=== PATIENT | female | born 1985 | race Caucasian/White ===

== ENCOUNTER 2019-10-22 17:52 | Emergency (ER) | payer MEDICAID ==
--- NOTE | 2019-10-22 18:15 | EDM.PDOC ---
ED HPI GENERAL MEDICAL PROBLEM - General Chief Complaint: Lower Extremity Injury/Pain Stated Complaint: R) 2nd toe injury Time Seen by Provider: 10/22/19 18:00 Source of Information: Reports: Patient, Family (), Old Records ([facility] EMR. No paper hospital chart available.) - History of Present Illness INITIAL COMMENTS - FREE TEXT/NARRATIVE: The patient was brought to the emergency room via private automobile by her for evaluation of 3/10 throbbing toe pain of digit #2 of the right foot after she caught it on a friend's door while taking care of his dog at about 17 :30 hours this afternoon. She denies any treatment or medications prior to arrival and has not injured this digit in the past. No history of fall, head injury, neurological deficits, foreign body or other complaints or injuries. No recent history of abdominal pain, heartburn, nausea, diarrhea, melena, gross hematochezia, or any food intolerance, including fatty foods, etc.. The patient also denies any recent fever, cough, wheezing, dyspnea, etc.. Onset: Today, Sudden Onset Date: 10/22/19 Onset Time: 17:30 Duration: Constant Location: Reports: Lower Extremity, Right. Denies: Head, Face, Neck, Chest, Abdomen, Back, Pelvis, Upper Extremity, Left, Upper Extremity, Right, Lower Extremity, Left, Radiates to Quality: Reports: Same as Previous Episode, Throbbing Severity: Mild Improves with: Reports: None Worsens with: Reports: None Context: Reports: Trauma Associated Symptoms: Reports: No Other Symptoms. 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: Reports: Other (see below) (None) Right Foot Pain Score (Numeric/FACES): 3 - Related Data Allergies Allergy/AdvReac Type Severity Reaction Status Date / Time adhesive tape Allergy Other Verified 10/22/19 17:53 codeine Allergy Itching Verified 10/22/19 17:53 Home Meds: Home Meds FLUoxetine HCl [Fluoxetine HCl] 40 mg PO DAILY 04/04/18 [History] FLUoxetine HCl [Prozac] 20 mg PO DAILY 04/04/18 [History] gemfibroziL [Lopid] 1 tab PO BID 12/12/18 [History] ALPRAZolam [Alprazolam] 1 tab PO Q6H PRN 10/22/19 [History] lisinopriL [Lisinopril] 10 mg PO DAILY 10/22/19 [History] Past Medical History HEENT History: Reports: Allergic Rhinitis, Impaired Vision, Other (See Below). Denies: Epistaxis, Glaucoma, Hard of Hearing, Macular Degeneration, Otitis Media, Retinal Detachment Other HEENT History: Patient wears glasses. Cardiovascular History: Reports: High Cholesterol, Hypertension, Other (See Below). Denies: Afib, Arrhythmia, Blood Clots/VTE/DVT, CAD, Cardiomyopathy, Heart Murmur, SD Other Cardiovascular History: Dyslipidemia. Respiratory History: Reports: None, Intubation, Previous. Denies: Asthma, Intubation, Difficult Gastrointestinal History: Reports: Cholelithiasis Genitourinary History: Reports: None. Denies: Acute Renal Failure, Chronic Renal Insuffiency, Renal Calculus, Retention, Urinary, Urinary Incontinence, UTI, Recurrent STENOTYPE MACHINE OPERATOR History: Reports: , Spontaneous . Denies: Dysfunctional Uterine Bleeding, Endometriosis, Fibroids : 4 Para: 2 LMP (Approximate): Other (See Below) Other STENOTYPE MACHINE OPERATOR History: LMP on 10/06/21 was normal. First trimester SAB and elective . Full term without complications during pregnancies or deliveries. Musculoskeletal History: Reports: Arthritis, Back Pain, Chronic, Fracture, Neck Pain, Chronic, Osteoarthritis, Other (See Below) Other Musculoskeletal History: Right mid radial ulnar fracture with concomitant right biceps tendon rupture at age 16 with no surgeries acquired. Neurological History: Reports: Headaches, Chronic, Migraines Psychiatric History: Reports: Anxiety, Depression Endocrine/Metabolic History: Reports: Obesity/BMI 30+ - Past Surgical History HEENT Surgical History: Reports: Oral Surgery, Other (See Below). Denies: Adenoidectomy, Myringotomy w Tube(s), Tonsillectomy Other HEENT Surgeries/Procedures: [place] teeth extraction 4 at age 19. GI Surgical History: Reports: Cholecystectomy, Other (See Below). Denies: Appendectomy, Hernia, Abdominal, Hernia, Inguinal, Hernia Repair/Other Other GI Surgeries/Procedures: Laparoscopic cholecystectomy in 2004. Female Surgical History: Reports: D&C, Dilitation & Evacuation, Other (See Below). Denies: Tubal Ligation Other Female Surgeries/Procedures: Elective as above. Endocrine Surgical History: Reports: None Neurological Surgical History: Reports: None Musculoskeletal Surgical History: Reports: None. Denies: ORIF - Past Imaging History Past Imaging History: Reports: Ultrasound (Last abdominal ultrasound on 06/12/18.) Social & Family History - Family History Neurological: Reports: Alzheimers Disease, Dementia, Other (See Below) Other Neurological Family History: Maternal grandmother with organic brain syndrome. - Tobacco Use Smoking Status *Q: Former Smoker Tobacco Use Within Last Twelve Months: No Years of Tobacco use: 13 Packs/Tins Daily: 1.5 Packs/Tins Daily Comment: Smoked between ages 13 and 31 with maximum use of 1.5 packs per day. 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 ED EXAM, GENERAL - Physical Exam Exam: See Below Exam Limited By: No Limitations General Appearance: Alert, WD/WN, No Apparent Distress, Anxious (Mild) Head: Atraumatic, Normocephalic. No: Facial Swelling, Facial Tenderness, Sinus Tenderness Neck: Normal Inspection, Supple, Non-Tender, Full Range of Motion. No: Lymphadenopathy (L), Lymphadenopathy (R), Thyromegaly Respiratory/Chest: No Respiratory Distress, Lungs Clear, Normal Breath Sounds, No Accessory Muscle Use, Chest Non-Tender. No: Pleural Rub, Retractions Cardiovascular: Normal Peripheral Pulses, Regular Rate, Rhythm, No Edema, No Gallop, No JVD, No Murmur, No Rub. No: Gallop/S3, Gallop/S4, Friction Rub Peripheral Pulses: 2+: Radial (L), Radial (R), Dorsalis Pedis (L), Dorsalis Pedis (R) GI/Abdominal: Normal Bowel Sounds, Soft, Non-Tender, No Organomegaly, No Distention, No Abnormal Bruit, No Mass, Pelvis Stable, Other (Obese). No: Guarding (Female) Exam: Deferred Rectal (Female) Exam: Deferred Back Exam: Normal Inspection, Full Range of Motion. No: CVA Tenderness (L), CVA Tenderness (R), Muscle Spasm Extremities: Normal Range of Motion, Normal Capillary Refill, Other (Mild spotting/bleeding with minimal nail avulsion and no evidence of acute laceration of digit #2 of the right foot. No foreign body, deformity, crepitation, or sign of fracture.). No: Joint Swelling, Chivo's Sign Neurological: Alert, Oriented, CN II-XII Intact, Normal Cognition, Normal Gait, No Motor/Sensory Deficits Psychiatric: Anxious (Mild). No: Depressed Mood Skin Exam: Warm, Dry, Intact, Normal Color, No Rash, Tattoo(s) (Multiple), Wound/Incision (Nail avulsion as above). No: Diaphoretic, Ecchymosis, Petechiae Lymphatic: No Adenopathy Course - Vital Signs Last Recorded V/S: Last Vital Signs Temp 37.2 C 10/22/19 17:55 Pulse 100 10/22/19 17:55 Resp 18 10/22/19 17:55 BP 144/87 H 10/22/19 18:40 Pulse Ox 96 10/22/19 17:55 Vital Signs - 24 hr 10/22/19 10/22/19 17:55 18:40 Temperature [ 37.2 C Oral] Pulse, 100 Peripheral [ Pulse Oximetry] Respiratory 18 Rate Blood Pressure 153/96 H 144/87 H [Right Lower Arm] O2 Sat by Pulse 96 Oximetry - Orders/Labs/Meds Orders: Active Orders 24 hr Category Date Time Status Toes Second Digit Rt T6 [CR] Stat Exams 10/22/19 18:16 Ordered Labs: None Meds: Medications Discontinued Medications Generic Name Dose Route Start Last Admin Trade Name Freq PRN Reason Stop Dose Admin Neomycin/Polymyxin/Bacitracin 1 each 10/22/19 18:16 Triple Antibiotic Oint TOP 10/22/19 18:17 ONETIME ONE - Radiology Interpretation Free Text/Narrative:: X-rays of digit #2 of the right foot shows mild to moderate osteoarthritic changes with no fracture, dislocation, foreign body, etc. Departure - Departure Time of Disposition: 18:45 Disposition: Home, Self-Care 01 Clinical Impression: Nail avulsion of toe, Hypertension, Dyslipidemia, Osteoarthritis, Mixed anxiety depressive disorder, Tobacco abuse counseling - Discharge Information *PRESCRIPTION DRUG MONITORING PROGRAM REVIEWED*: Not Applicable *COPY OF PRESCRIPTION DRUG MONITORING REPORT IN PATIENT PERCY: Not Applicable Instructions: Steps to Quit Smoking, [id number], Nail Avulsion, Health Risks of Smoking, Preventing Exposure to Secondhand Smoke, Adult Referrals: Sophia Marvin NP [Primary Care Provider] - Forms: ED Department Discharge Additional Instructions: 1. Follow up with your regular provider in 10-14 days as needed, if symptoms persist. Bring these discharge instructions with you to that visit.. 2. Tylenol 650 mg by mouth every 4 hours and/or OTC ibuprofen 2-3 tabs by mouth every 6 hours with food as directed./needed. You may stagger these medications for 48-72 hours only, which essentially means that you are receiving a pain medication about every 2 hours. 3. Antibacterial soap wash/soak with subsequent antibacterial dressing such as Neosporin, etc. as directed 2 times per day until the wound site completely heals. Keep the area clean and dry with activity restrictions as discussed. Never use hydrogen peroxide for wound care. 4. Stop all tobacco exposure NAISMA as directed with counselling, information, etc. given at discharge. 5. Activity as tolerated/discussed 6. Immediately after this visit verify that your cellular telephone's voicemail has been activated and is empty. Also verify that your home telephone's answering machine is operating properly and has space to receive messages. Note that it is sometimes necessary for us to be able to contact you at a later date to discuss your medical care. 7. Please remember that we are ALWAYS here for you and want to answer any questions you may have. Feel free to call the hospital any time and we call you back NASIM[place]. 8. Continue to observe your blood pressure closely through your regular provider. Sepsis Event Note (ED) - Evaluation Sepsis Screening Result: No Definite Risk - Focused Exam Vital Signs: Vital Signs Temp Pulse Resp BP Pulse Ox 10/22/19 18:40 144/87 H 10/22/19 17:55 37.2 C 100 18 153/96 H 96 - Problem List & Annotations (1) Nail avulsion of toe SNOMED Code(s): 451533377 Code(s): S91.209A - UNSP OPEN WOUND OF UNSP TOE(S) W DAMAGE TO NAIL, INIT ENCNTR Status: Acute Priority: High Onset Date: 10/22/19 Annotation/Comment:: Minor nail avulsion with no evidence of laceration, significant bleeding, etc. No indication for nail removal at this time. Symptomatic relief as per discharge instructions. Last TdAP on 02/25/17, which was confirmed by the emergency room nurse through [facility]. Qualifiers: Encounter type: initial encounter Qualified Code(s): S91.209A - Unspecified open wound of unspecified toe(s) with damage to nail, initial encounter (2) Hypertension SNOMED Code(s): 74860939 Code(s): I10 - ESSENTIAL (PRIMARY) HYPERTENSION Status: Chronic Priority: Medium Annotation/Comment:: Somewhat elevated in the emergency room, however improved without further therapy. Continue to observe closely by her regular provider with no medication changes at this time. Qualifiers: Hypertension type: essential hypertension Qualified Code(s): I10 - Essential (primary) hypertension (3) Tobacco abuse counseling SNOMED Code(s): 303654841, 519034031, 125209951 Code(s): Z71.6 - TOBACCO ABUSE COUNSELING Status: Chronic Priority: Medium Annotation/Comment:: She was congratulated about quitting smoking with her apparently also trying to quit smoking. Tobacco cessation, etc. strongly encouraged with information provided. (4) Dyslipidemia SNOMED Code(s): 853387269 Code(s): E78.5 - HYPERLIPIDEMIA, UNSPECIFIED Status: Chronic Priority: Medium Annotation/Comment:: Currently under therapy. Weight loss in moderation advisable secondary to her obesity. (5) Mixed anxiety depressive disorder SNOMED Code(s): 490089188 Code(s): F41.8 - OTHER SPECIFIED ANXIETY DISORDERS Status: Chronic Priority: Medium Annotation/Comment:: Stable by history (6) Osteoarthritis SNOMED Code(s): 708807902 Code(s): M19.90 - UNSPECIFIED OSTEOARTHRITIS, UNSPECIFIED SITE Status: Chronic Priority: Medium Annotation/Comment:: Stable by history with no evidence of other injury. Qualifiers: Osteoarthritis location: multiple joints Osteoarthritis type: primary Qualified Code(s): M89.49 - Other hypertrophic osteoarthropathy, multiple sites - Problem List Review Problem List Initiated/Reviewed/Updated: Yes - My Orders Last 24 Hours: My Active Orders 10/22/19 18:16 Toes Second Digit Rt T6 [CR] Stat - Assessment/Plan Last 24 Hours: My Active Orders 10/22/19 18:16 Toes Second Digit Rt T6 [CR] Stat Assessment:: As above Plan: As above. Extensive precautions were given to the patient and her , who are in agreement with the treatment plan. See Patient Instructions for further treatment and plan.
[2019-10-22] MEDS ORDERED: Bacitracin/Neomycin/Polymyxin B Oint 0.9 GM U/D Packet TOP ONE (18:16)
== END 2019-10-22 18:45 | disposition home or self-care (01) ==
LOC: LL.ED 17:52
DX: S91.204A Unspecified open wound of right lesser toe(s) with damage to nail, initial encounter (principal); I10 Essential (primary) hypertension; E78.5 Hyperlipidemia, unspecified; M19.90 Unspecified osteoarthritis, unspecified site; F41.8 Other specified anxiety disorders; Z87.891 Personal history of nicotine dependence; E66.9 Obesity, unspecified; Z68.43 Body mass index [BMI] 50.0-59.9, adult; Z71.6 Tobacco abuse counseling; Z88.5 Allergy status to narcotic agent; Z91.048 Other nonmedicinal substance allergy status; Z79.899 Other long term (current) drug therapy; W23.0XXA Caught, crushed, jammed, or pinched between moving objects, initial encounter
CPT/HCPCS: 73660-T6; 99283

== ENCOUNTER 2019-11-24 17:50 | Emergency (ER) | payer MEDICAID ==
[2019-11-24] MEDS: Sodium Chloride 0.9% 10 ML Syringe FLUSH PRN (18:22)
[2019-11-24] MEDS: Ketorolac 30 MG/ML SDV IVPUSH ONE ×2 (18:22→19:27)
--- NOTE | 2019-11-24 18:41 | EDM.PDOC ---
ED HPI GENERAL MEDICAL PROBLEM - General Chief Complaint: Flank Pain Stated Complaint: left flank pain Time Seen by Provider: 11/24/19 18:27 Source of Information: Reports: Patient History Limitations: Reports: No Limitations - History of Present Illness INITIAL COMMENTS - FREE TEXT/NARRATIVE: 1 1/2 week hx intermittent left flank pain. Has become more constant over the last few days. Now is located a bit lower and wrapping around left side of abdomen. No nausea/emesis/fever. Urinated more frequently last night but denies pain with urination. No other acute changes/complaints. Left Flank Pain Score (Numeric/FACES): 6 - Related Data Allergies Allergy/AdvReac Type Severity Reaction Status Date / Time adhesive tape Allergy Other Verified 11/24/19 17:58 codeine Allergy Itching Verified 11/24/19 17:58 Home Meds: Home Meds ALPRAZolam [Alprazolam] 1 tab PO Q6H PRN 10/22/19 [History] lisinopriL [Lisinopril] 10 mg PO DAILY 10/22/19 [History] Cyclobenzaprine [Flexeril] 10 mg PO TID PRN 11/24/19 [History] Escitalopram [Lexapro] 20 mg PO DAILY 11/24/19 [History] Fenofibrate Nanocrystallized [Fenofibrate] 145 mg PO DAILY 11/24/19 [History] Phentermine HCl 15 mg PO DAILY 11/24/19 [History] Pravastatin Sodium 10 mg PO DAILY 11/24/19 [History] Tamsulosin HCl [Flomax] 0.4 mg PO DAILY #10 capsule 11/24/19 [Rx] Past Medical History HEENT History: Reports: Allergic Rhinitis, Impaired Vision, Other (See Below). Denies: Epistaxis, Glaucoma, Hard of Hearing, Macular Degeneration, Otitis Media, Retinal Detachment Other HEENT History: Patient wears glasses. Cardiovascular History: Reports: High Cholesterol, Hypertension, Other (See Below). Denies: Afib, Arrhythmia, Blood Clots/VTE/DVT, CAD, Cardiomyopathy, Heart Murmur, [place] Other Cardiovascular History: Dyslipidemia. Respiratory History: Reports: None, Intubation, Previous. Denies: Asthma, Intubation, Difficult Gastrointestinal History: Reports: Cholelithiasis Genitourinary History: Reports: None. Denies: Acute Renal Failure, Chronic Renal Insuffiency, Renal Calculus, Retention, Urinary, Urinary Incontinence, UTI, Recurrent CONTINUOUS MINER History: Reports: , Spontaneous . Denies: Dysfunctional Uterine Bleeding, Endometriosis, Fibroids Other CONTINUOUS MINER History: LMP on 10/06/21 was normal. First trimester SAB and elective . Full term without complications during pregnancies or deliveries. Musculoskeletal History: Reports: Arthritis, Back Pain, Chronic, Fracture, Neck Pain, Chronic, Osteoarthritis, Other (See Below) Other Musculoskeletal History: Right mid radial ulnar fracture with concomitant right biceps tendon rupture at age 16 with no surgeries acquired. Neurological History: Reports: Headaches, Chronic, Migraines Psychiatric History: Reports: Anxiety, Depression Endocrine/Metabolic History: Reports: Obesity/BMI 30+ - Past Surgical History HEENT Surgical History: Reports: Oral Surgery, Other (See Below). Denies: Adenoidectomy, Myringotomy w Tube(s), Tonsillectomy Other HEENT Surgeries/Procedures: [place] teeth extraction 4 at age 19. GI Surgical History: Reports: Cholecystectomy, Other (See Below). Denies: Appendectomy, Hernia, Abdominal, Hernia, Inguinal, Hernia Repair/Other Other GI Surgeries/Procedures: Laparoscopic cholecystectomy in 2004. Female Surgical History: Reports: D&C, Dilitation & Evacuation, Other (See Below). Denies: Tubal Ligation Other Female Surgeries/Procedures: Elective as above. Endocrine Surgical History: Reports: None Neurological Surgical History: Reports: None Musculoskeletal Surgical History: Reports: None. Denies: ORIF - Past Imaging History Past Imaging History: Reports: Ultrasound (Last abdominal ultrasound on 06/12/18.) Social & Family History - Family History Neurological: Reports: Alzheimers Disease, Dementia, Other (See Below) Other Neurological Family History: Maternal grandmother with organic brain syndrome. 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 ED EXAM, GENERAL - Physical Exam Exam: See Below Exam Limited By: No Limitations General Appearance: Alert, Moderate Distress, Obese Eye Exam: Bilateral Eye: EOMI, PERRL Ears: Hearing Grossly Normal Nose: No: Nasal Deformity, Nasal Swelling, Nasal Drainage Throat/Mouth: Normal Lips, Normal Voice, No Airway Compromise Head: Atraumatic, Normocephalic Neck: Supple Respiratory/Chest: No Respiratory Distress, Lungs Clear, Normal Breath Sounds, No Accessory Muscle Use Cardiovascular: Regular Rate, Rhythm, No Murmur GI/Abdominal: Soft, Non-Tender, No Distention (Female) Exam: Deferred Rectal (Female) Exam: Deferred Back Exam: CVA Tenderness (L). No: CVA Tenderness (R), Muscle Spasm Extremities: Normal Inspection, Normal Capillary Refill Neurological: Alert, Oriented, Normal Cognition, Normal Gait Psychiatric: Normal Affect, Normal Mood Skin Exam: Warm, Dry, Intact, Normal Color Course - Vital Signs Last Recorded V/S: Last Vital Signs Temp 36.4 C 11/24/19 17:51 Pulse 88 11/24/19 17:51 Resp 20 11/24/19 17:51 BP 149/70 H 11/24/19 17:51 Pulse Ox 99 11/24/19 17:51 - Orders/Labs/Meds Orders: Active Orders 24 hr Category Date Time Status Peripheral IV Care [RC] . DIRECTED Care 11/24/19 18:14 Active Abdomen Pelvis wo Cont [CT] Stat Exams 11/24/19 18:36 Taken CULTURE URINE [RM] Routine Lab 11/24/19 20:23 Ordered Sodium Chloride 0.9% [Saline Flush] Med 11/24/19 18:14 Active 10 ml FLUSH ASDIRECTED PRN Peripheral IV Insertion Adult [OM.PC] Routine Oth 11/24/19 18:14 Ordered Medication Orders Sodium Chloride (Saline Flush) 10 ml FLUSH ASDIRECTED PRN PRN Reason: Keep Vein Open Last Admin: 11/24/19 18:22 Dose: 10 ml Documented by: JACQUI Labs: Laboratory Tests 11/24/19 11/24/19 11/24/19 Range/Units 18:10 18:25 18:47 WBC 9.9 (4.0-10.2) K/uL RBC 4.95 (3.77-5.09) M/uL Hgb 11.8 (11.7-15.5) g/dL Hct 39.1 (34.0-46.0) % MCV 79.0 L (84.0-98.0) fL MCH 23.8 L (28.2-33.3) pg MCHC 30.2 L (31.7-36.0) g/dL RDW 16.4 H (11.2-14.1) % Plt Count 448 H (150-350) K/uL Neut % (Auto) 55.9 (45.0-80.0) % Lymph % (Auto) 31.7 (10.0-50.0) % [place] % (Auto) 8.5 (2.0-14.0) % Eos % (Auto) 3.5 (0.0-5.0) % Baso % (Auto) 0.4 (0.0-2.0) % Neut # (Auto) 5.50 (1.40-7.00) K/uL Lymph # (Auto) 3.13 (0.50-3.50) K/uL [place] # (Auto) 0.84 (0.00-1.00) K/uL Eos # (Auto) 0.35 (0.00-0.50) K/uL Baso # (Auto) 0.04 (0.00-0.20) K/uL Sodium 138 (136-145) mmol/L Potassium 4.1 (3.5-5.1) mmol/L Chloride 102 (98-107) mmol/L Carbon Dioxide 27.6 (21.0-32.0) mmol/L BUN 12 (7-18) mg/dL Creatinine 0.70 (0.51-1.17) mg/dL Est Cr Clr Drug Dosing 118.35 mL/min Estimated GFR (MDRD) > 60 mL/min Glucose 77 (74-106) mg/dL Calcium 9.0 (8.5-10.1) mg/dL Total Bilirubin 0.2 (0.2-1.0) mg/dL AST 18 (15-37) U/L ALT 32 (12-78) U/L Alkaline Phosphatase 69 (46-116) IU/L Total Protein 7.6 (6.4-8.2) g/dL Albumin 3.8 (3.4-5.0) g/dL Specimen Type Urinvoid Urine Color Yellow Urine Appearance Slightly cloudy Urine pH 6.0 (5.0-9.0) Ur Specific [place] 1.020 (1.005-1.030) Urine Protein Negative (NEGATIVE) mg/dL Urine Glucose (UA) Negative (NEGATIVE) mg/dL Urine Ketones Negative (NEGATIVE) mg/dL Urine Occult Blood Large H (NEGATIVE) Urine Nitrite Negative (NEGATIVE) Urine Bilirubin Negative (NEGATIVE) Urine Urobilinogen 1.0 (0.2-1.0) E.U./dL Ur Leukocyte Esterase Negative (NEGATIVE) Urine RBC 75-100 H /HPF Urine WBC 0-5 /HPF Ur Epithelial Cells Few /LPF Urine Bacteria Moderate H (NONE TO FEW) /HPF Urinalysis Comment Urine HCG, Qual 11/24/19 Range/Units 18:47 WBC (4.0-10.2) K/uL RBC (3.77-5.09) M/uL Hgb (11.7-15.5) g/dL Hct (34.0-46.0) % MCV (84.0-98.0) fL MCH (28.2-33.3) pg MCHC (31.7-36.0) g/dL RDW (11.2-14.1) % Plt Count (150-350) K/uL Neut % (Auto) (45.0-80.0) % Lymph % (Auto) (10.0-50.0) % [place] % (Auto) (2.0-14.0) % Eos % (Auto) (0.0-5.0) % Baso % (Auto) (0.0-2.0) % Neut # (Auto) (1.40-7.00) K/uL Lymph # (Auto) (0.50-3.50) K/uL [place] # (Auto) (0.00-1.00) K/uL Eos # (Auto) (0.00-0.50) K/uL Baso # (Auto) (0.00-0.20) K/uL Sodium (136-145) mmol/L Potassium (3.5-5.1) mmol/L Chloride (98-107) mmol/L Carbon Dioxide (21.0-32.0) mmol/L BUN (7-18) mg/dL Creatinine (0.51-1.17) mg/dL Est Cr Clr Drug Dosing mL/min Estimated GFR (MDRD) mL/min Glucose (74-106) mg/dL Calcium (8.5-10.1) mg/dL Total Bilirubin (0.2-1.0) mg/dL AST (15-37) U/L ALT (12-78) U/L Alkaline Phosphatase (46-116) IU/L Total Protein (6.4-8.2) g/dL Albumin (3.4-5.0) g/dL Specimen Type Urine Color Urine Appearance Urine pH (5.0-9.0) Ur Specific [place] (1.005-1.030) Urine Protein (NEGATIVE) mg/dL Urine Glucose (UA) (NEGATIVE) mg/dL Urine Ketones (NEGATIVE) mg/dL Urine Occult Blood (NEGATIVE) Urine Nitrite (NEGATIVE) Urine Bilirubin (NEGATIVE) Urine Urobilinogen (0.2-1.0) E.U./dL Ur Leukocyte Esterase (NEGATIVE) Urine RBC /HPF Urine WBC /HPF Ur Epithelial Cells /LPF Urine Bacteria (NONE TO FEW) /HPF Urinalysis Comment Urine HCG, Qual Negative Meds: Medications Generic Name Dose Route Start Last Admin Trade Name Freq PRN Reason Stop Dose Admin Sodium Chloride 10 ml 11/24/19 18:14 11/24/19 18:22 Saline Flush FLUSH 10 ml ASDIRECTED PRN Administration Keep Vein Open Discontinued Medications Generic Name Dose Route Start Last Admin Trade Name Freq PRN Reason Stop Dose Admin Sodium Chloride 1,000 mls @ 999 mls/hr 11/24/19 18:37 11/24/19 18:50 Normal Saline IV 11/24/19 19:37 999 mls/hr .BOLUS ONE Administration Ketorolac Tromethamine 30 mg 11/24/19 18:18 11/24/19 18:22 Toradol IVPUSH 11/24/19 18:19 30 mg ONETIME ONE Administration Ketorolac Tromethamine Confirm 11/24/19 19:20 11/24/19 19:26 Toradol Administered 11/24/19 19:21 Not Given Dose 30 mg .ROUTE .STK-MED ONE Ketorolac Tromethamine 30 mg 11/24/19 19:26 11/24/19 19:27 Toradol IVPUSH 11/24/19 19:27 30 mg ONETIME ONE Administration Morphine Sulfate 4 mg 08/02/20 19:26 11/24/19 19:28 Morphine IVPUSH 11/24/19 19:27 4 mg ONETIME ONE Administration Morphine Sulfate 2 mg 11/24/19 20:23 Morphine IVPUSH 11/24/19 20:24 ONETIME ONE Tamsulosin HCl 0.4 mg 11/24/19 18:37 11/24/19 18:50 Flomax PO 11/24/19 18:38 0.4 mg ONETIME ONE Administration - Re-Assessments/Exams Free Text/Narrative Re-Assessment/Exam: 11/24/19 18:40 Basic labs obtained. Patient denied chance of . Kidney stone suspected. Patient OK with obtaining noncontrast CT to assess for stone. Flomax/Toradol/IV fluids ordered. 11/24/19 20:11 No obvious stone or other acute process noted by Radiology upon review of CT scan. Radiologist did not feel that a second scan with contrast would give better yield. Small incidental possible ileus but it is not suspected that patient's current pain complaints are secondary to ileus. Patient's pain complaint and hematuria consistent with kidney stone. WBC normal. Differential discussed with patient. Although this appears to behave like a kidney stone, we cannot rule out radicular pain/GI cause/other abdominal etiology for pain. Patient advised that admission to Observation overnight would be best option for continued pain control. She declined this based on concern that her grandmother, who has dementia, would find patient's absence upsetting. She was made aware that we only had Tramadol and T#3 available for take home pain medication, and she is not tolerant of Codeine. Patient is willing to take risk of pain returning and will be discharged home. Departure - Departure Time of Disposition: 20:13 Disposition: Home, Self-Care 01 Condition: Good Clinical Impression: Ureteric colic - Discharge Information *PRESCRIPTION DRUG MONITORING PROGRAM REVIEWED*: Not Applicable *COPY OF PRESCRIPTION DRUG MONITORING REPORT IN PATIENT PERCY: Not Applicable Prescriptions: Tamsulosin HCl [Flomax] 0.4 mg PO DAILY #10 capsule Instructions: Kidney Stones, [id number] Referrals: PCP,None [Primary Care Provider] - Forms: ED Department Discharge Additional Instructions: as discussed, we THINK that this is pain that is most likely from a kidney stone. However, we need to keep an open mind that something else might be causing the pain and further testing may be needed. See how you feel over the next 24 hours. Follow up tomorrow at clinic for recheck, further pain meds as needed, and additional planning if you have not passed a stone and had improvement of symptoms. Follow up otherwise as needed if you have sudden worsening problems. OK to take Tylenol with your Tramadol, or Ibuprofen. Take Tramadol 1 tab every 4-6 hours prn pain Take Flomax one tab every day as needed for kidney stone like pain Strain urine to see if a stone gets passed Sepsis Event Note (ED) - Evaluation Sepsis Screening Result: No Definite Risk - Focused Exam Vital Signs: Vital Signs Temp Pulse Resp BP Pulse Ox 11/24/19 17:51 36.4 C 88 20 149/70 H 99 - My Orders Last 24 Hours: My Active Orders 11/24/19 18:14 Peripheral IV Care [RC] . DIRECTED Sodium Chloride 0.9% [Saline Flush] 10 ml FLUSH ASDIRECTED PRN Peripheral IV Insertion Adult [OM.PC] Routine 11/24/19 18:36 Abdomen Pelvis wo Cont [CT] Stat 11/24/19 20:23 CULTURE URINE [RM] Routine - Assessment/Plan Last 24 Hours: My Active Orders 11/24/19 18:14 Peripheral IV Care [RC] . DIRECTED Sodium Chloride 0.9% [Saline Flush] 10 ml FLUSH ASDIRECTED PRN Peripheral IV Insertion Adult [OM.PC] Routine 11/24/19 18:36 Abdomen Pelvis wo Cont [CT] Stat 11/24/19 20:23 CULTURE URINE [RM] Routine
[2019-11-24] MEDS: Tamsulosin 0.4 MG Cap.ER PO ONE (18:50)
[2019-11-24] MEDS: Sodium Chloride 0.9% 1,000 ML IV ONE (18:50)
[2019-11-24 18:52] LABS: CHLORIDE,CL 102 mmol/L (98-107); SODIUM,NA 138 mmol/L (136-145)
[2019-11-24] MEDS: Ketorolac 30 MG/ML SDV ONE (19:26)
[2019-11-24] MEDS: Morphine 4 MG/ML Syringe IVPUSH ONE (19:28)
[2019-11-24] MEDS: Morphine 2 MG/ML SYRINGE IVPUSH ONE (20:49)
== END 2019-11-24 20:20 | disposition home or self-care (01) ==
LOC: LL.ED 17:50
DX: N23 Unspecified renal colic (principal); I10 Essential (primary) hypertension; F41.9 Anxiety disorder, unspecified; F32.9 Major depressive disorder, single episode, unspecified; E66.9 Obesity, unspecified; Z90.49 Acquired absence of other specified parts of digestive tract; Z98.890 Other specified postprocedural states; Z88.5 Allergy status to narcotic agent; Z91.09 Other allergy status, other than to drugs and biological substances; Z79.899 Other long term (current) drug therapy
CPT/HCPCS: 36415; 74176; 80053; 81001; 81025; 85025; 96374; 96375; 96376; 99284-25; A9270-GY; J1885; J2270; J7030

== ENCOUNTER 2021-01-22 20:45 | Emergency (ER) | payer MEDICAID ==
[2021-01-22] MEDS: EPINEPHrine 1 MG/1 ML Amp IM ONE (20:53)
[2021-01-22] MEDS ORDERED: Sodium Chloride 0.9% 10 ML Syringe FLUSH PRN (20:53)
[2021-01-22] MEDS: Famotidine 20 MG/2 ML SDV IVPUSH ONE (21:03)
[2021-01-22] MEDS: methylPREDNISolone Sodium Succinate 125 MG/2 ML SDV IV ONE (21:03)
[2021-01-22] MEDS: diphenhydrAMINE 50 MG/ML SDV IVPUSH ONE (21:03)
--- NOTE | 2021-01-22 21:55 | EDM.PDOC ---
ED HPI GENERAL MEDICAL PROBLEM - General Chief Complaint: Allergic Reaction Stated Complaint: allergic reaction Time Seen by Provider: 01/22/21 21:17 Source of Information: Reports: Patient History Limitations: Reports: No Limitations - History of Present Illness INITIAL COMMENTS - FREE TEXT/NARRATIVE: Pt. presents to ER with complaints of throat tightness and rash. She states that she has a nut allergy but has never had an anaphylactic reaction, or reaction severe enough to necessitate getting epinephrine. She denies any shortness of breath. No wheezing. Pt. states that she ate some deep fried food tonight and thinks it was fried in peanut oil. She denies any nausea or vomiting. Denies any lightheadedness. No fever or chills. Denies any recent illness. Denies any substernal chest pain. Onset: Today Onset Date: 01/22/21 Location: Reports: Generalized Associated Symptoms: Denies: Chest Pain, Cough, Diaphoresis, Fever/Chills, Headaches, Malaise, Nausea/Vomiting, Rash, Seizure, Shortness of Breath, Syncope, Weakness - Related Data Allergies Allergy/AdvReac Type Severity Reaction Status Date / Time adhesive tape Allergy Other Verified 11/24/19 17:58 codeine Allergy Itching Verified 11/24/19 17:58 Home Meds: Home Meds ALPRAZolam [Alprazolam] 1 tab PO Q6H PRN 10/22/19 [History] lisinopriL [Lisinopril] 10 mg PO DAILY 10/22/19 [History] Cyclobenzaprine [Flexeril] 10 mg PO TID PRN 11/24/19 [History] Escitalopram [Lexapro] 20 mg PO DAILY 11/24/19 [History] Fenofibrate Nanocrystallized [Fenofibrate] 145 mg PO DAILY 11/24/19 [History] Phentermine HCl 15 mg PO DAILY 11/24/19 [History] Pravastatin Sodium 10 mg PO DAILY 11/24/19 [History] Tamsulosin HCl [Flomax] 0.4 mg PO DAILY #10 capsule 11/24/19 [Rx] Past Medical History HEENT History: Reports: Allergic Rhinitis, Impaired Vision, Other (See Below) Other HEENT History: Patient wears glasses. Cardiovascular History: Reports: High Cholesterol, Hypertension, Other (See Below) Other Cardiovascular History: Dyslipidemia. Respiratory History: Reports: None, Intubation, Previous Gastrointestinal History: Reports: Cholelithiasis Genitourinary History: Reports: None CAPACITY MANAGEMENT SPECIALIST History: Reports: , Spontaneous Other CAPACITY MANAGEMENT SPECIALIST History: LMP on 10/06/21 was normal. First trimester SAB and elective . Full term without complications during pregnancies or deliveries. Musculoskeletal History: Reports: Arthritis, Back Pain, Chronic, Fracture, Neck Pain, Chronic, Osteoarthritis, Other (See Below) Other Musculoskeletal History: Right mid radial ulnar fracture with concomitant right biceps tendon rupture at age 16 with no surgeries acquired. Neurological History: Reports: Headaches, Chronic, Migraines Psychiatric History: Reports: Anxiety, Depression Endocrine/Metabolic History: Reports: Obesity/BMI 30+ - Past Surgical History HEENT Surgical History: Reports: Oral Surgery, Other (See Below) Other HEENT Surgeries/Procedures: [place] teeth extraction 4 at age 19. GI Surgical History: Reports: Cholecystectomy, Other (See Below) Other GI Surgeries/Procedures: Laparoscopic cholecystectomy in 2004. Female Surgical History: Reports: D&C, Dilitation & Evacuation, Other (See Below) Other Female Surgeries/Procedures: Elective as above. Endocrine Surgical History: Reports: None Neurological Surgical History: Reports: None Musculoskeletal Surgical History: Reports: None - Past Imaging History Past Imaging History: Reports: Ultrasound (Last abdominal ultrasound on 06/12/18.) Social & Family History - Family History Neurological: Reports: Alzheimers Disease, Dementia, Other (See Below) Other Neurological Family History: Maternal grandmother with organic brain syndrome. - Tobacco Use Tobacco Use Status *Q: Former Tobacco User Used Tobacco, but Quit: Yes Month/Year Tobacco Last Used: 10/2016 - Caffeine Use Caffeine Use: Reports: Coffee, Soda, Tea - Recreational Drug Use Recreational Drug Use: No - Living Situation & Occupation Living situation: Reports: ( second in 2009 with 2 children from her first marriage and 2 children from his first marriage), (First with 2 children from the 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 ED EXAM GENERAL NO PERIP PULSE - Physical Exam Exam: See Below Exam Limited By: No Limitations General Appearance: Alert, WD/WN, No Apparent Distress Eye Exam: Bilateral Eye: EOMI Throat/Mouth: Normal Inspection, Normal Lips, Normal Teeth, Normal Gums, Normal Oropharynx, Normal Voice, No Airway Compromise Head: Atraumatic, Normocephalic Neck: Normal Inspection, Non-Tender Respiratory/Chest: No Respiratory Distress, Lungs Clear, Normal Breath Sounds, No Accessory Muscle Use, Chest Non-Tender Cardiovascular: Normal Peripheral Pulses, Regular Rate, Rhythm, No Edema, No Gallop, No JVD, No Murmur Extremities: Normal Inspection, Normal Range of Motion, Non-Tender, Normal Capillary Refill Neurological: Alert, Oriented, CN II-XII Intact, Normal Cognition, No Motor/Sensory Deficits Psychiatric: Normal Affect, Anxious Skin Exam: Erythema, Rash Lymphatic: No Adenopathy Course - Vital Signs Last Recorded V/S: Last Vital Signs Temp 36.5 C 01/22/21 21:17 Pulse 69 01/22/21 21:17 Resp 12 01/22/21 21:17 BP 157/83 H 01/22/21 21:17 Pulse Ox 99 01/22/21 21:17 - Orders/Labs/Meds Orders: Active Orders 24 hr Category Date Time Status Peripheral IV Care [RC] . DIRECTED Care 01/22/21 20:54 Active Sodium Chloride 0.9% [Saline Flush] Med 01/22/21 20:53 Active 10 ml FLUSH ASDIRECTED PRN Peripheral IV Insertion Adult [OM.PC] Routine Oth 01/22/21 20:53 Ordered Medication Orders Sodium Chloride (Sodium Chloride 0.9% 10 Ml Syringe) 10 ml FLUSH ASDIRECTED PRN PRN Reason: Keep Vein Open Meds: Medications Generic Name Dose Route Start Last Admin Trade Name Freq PRN Reason Stop Dose Admin Sodium Chloride 10 ml 01/22/21 20:53 Sodium Chloride 0.9% 10 Ml Syringe FLUSH ASDIRECTED PRN Keep Vein Open Discontinued Medications Generic Name Dose Route Start Last Admin Trade Name Freq PRN Reason Stop Dose Admin Diphenhydramine HCl 50 mg 01/22/21 20:54 01/22/21 21:03 Diphenhydramine 50 Mg/Ml Sdv IVPUSH 01/22/21 20:55 50 mg ONETIME ONE Administration Epinephrine HCl 0.3 mg 01/22/21 20:47 01/22/21 20:53 Epinephrine 1 Mg/1 Ml Amp IM 01/22/21 20:48 0.3 mg ONETIME ONE Administration Famotidine 20 mg 01/22/21 20:54 01/22/21 21:03 Famotidine 20 Mg/2 Ml Sdv IVPUSH 01/22/21 20:55 20 mg ONETIME ONE Administration Methylprednisolone Sodium Succinate 125 mg 01/22/21 20:54 01/22/21 21:03 Methylprednisolone Sodium Succinate 125 Mg/2 Ml Sdv IV 01/22/21 20:55 125 mg ONETIME ONE Administration Departure - Departure Time of Disposition: 21:57 Disposition: Home, Self-Care 01 Clinical Impression: Allergic reaction - Discharge Information Instructions: How to Use an Auto-Injector Pen, Food Allergy, Prednisone tablets Referrals: Sophia Marvin NP [Primary Care Provider] - Forms: ED Department Discharge Additional Instructions: Prednisone 10mg 4 tabs daily for 5 days Benadryl 25mg 2 tabs every 4-6 hours as needed for itching/rash. It will take about a day for the steroids we gave you to start working fully I also gave you a prescription for an epi pen that you can fill on Monday in [place] in the event of a severe reaction Follow-up in clinic in 7-10 days Sepsis Event Note (ED) - Evaluation Sepsis Screening Result: No Definite Risk - Focused Exam Vital Signs: Vital Signs Temp Pulse Resp BP Pulse Ox 01/22/21 21:17 36.5 C 69 12 157/83 H 99 - Problem List Review Problem List Initiated/Reviewed/Updated: Yes - My Orders Last 24 Hours: My Active Orders 01/22/21 20:53 Sodium Chloride 0.9% [Saline Flush] 10 ml FLUSH ASDIRECTED PRN Peripheral IV Insertion Adult [OM.PC] Routine 01/22/21 20:54 Peripheral IV Care [RC] . DIRECTED - Assessment/Plan Last 24 Hours: My Active Orders 01/22/21 20:53 Sodium Chloride 0.9% [Saline Flush] 10 ml FLUSH ASDIRECTED PRN Peripheral IV Insertion Adult [OM.PC] Routine 01/22/21 20:54 Peripheral IV Care [RC] . DIRECTED Plan: Pt. will be discharged. She reports feeling much improved after receiving the above named medications. Pt. started on a course of prednisone 40mg daily for 5 days. Pt. can also take benadryl 50mg every 4-6 hours as needed for itching/rash. Advised that the effects of the epinephrine may stop working before the steroids have time to work. She was also given an epinephrine autoinjector prescription. Recheck in clinic in 7-10 days, sooner if not gradually improving.
== END 2021-01-22 22:05 | disposition home or self-care (01) ==
LOC: LL.ED 20:45
DX: T78.1XXA Other adverse food reactions, not elsewhere classified, initial encounter (principal); E78.00 Pure hypercholesterolemia, unspecified; I10 Essential (primary) hypertension; E66.9 Obesity, unspecified; Z68.30 Body mass index [BMI] 30.0-30.9, adult; Z79.899 Other long term (current) drug therapy; Z91.048 Other nonmedicinal substance allergy status; Z88.5 Allergy status to narcotic agent; Z87.891 Personal history of nicotine dependence
CPT/HCPCS: 96372; 96374; 96375; 99283; 99283-25; J0171; J1200; J2930; J3490

== ENCOUNTER 2021-08-27 15:49 | Emergency (ER) | payer MEDICAID ==
[2021-08-27] MEDS ORDERED: Sodium Chloride 0.9% 10 ML Syringe FLUSH PRN (16:01)
[2021-08-27] MEDS: diphenhydrAMINE 50 MG/ML SDV IVPUSH ONE (16:45)
[2021-08-27] MEDS: SUMAtriptan 6 MG/0.5 ML SDV SUBCUT ONE (16:46)
[2021-08-27] MEDS: Promethazine 25 MG/ML SDV IM ONE (16:46)
[2021-08-27] MEDS: Ketorolac 15 MG/ML SDV IVPUSH ONE (16:47)
[2021-08-27] MEDS: Sodium Chloride 0.9% 1,000 ML IV ONE (16:47)
[2021-08-27] MEDS ORDERED: Magnesium Sulfate/D5W 1 GM/100 ML Premix Bag IV ONE (17:16)
[2021-08-27] MEDS: Haloperidol Lactate 5 MG/ML SDV IVPUSH ONE (17:21)
== END 2021-08-27 17:36 | disposition home or self-care (01) ==
LOC: LL.ED 15:49
DX: G43.901 Migraine, unspecified, not intractable, with status migrainosus (principal); E78.00 Pure hypercholesterolemia, unspecified; I10 Essential (primary) hypertension; E66.9 Obesity, unspecified; Z68.30 Body mass index [BMI] 30.0-30.9, adult; Z91.048 Other nonmedicinal substance allergy status; Z88.5 Allergy status to narcotic agent; Z79.899 Other long term (current) drug therapy
CPT/HCPCS: 96372; 96374; 96375; 99283; J1200; J1630; J1885; J2550; J3030; J7030

== ENCOUNTER 2022-11-04 23:39 | Emergency (ER) | payer MEDICAID ==
[2022-11-04] MEDS ORDERED: diphenhydrAMINE 50 MG/ML SDV IM ONE (23:56)
[2022-11-04] MEDS ORDERED: Ketorolac 30 MG/ML SDV IM ONE (23:56)
[2022-11-04] MEDS ORDERED: Prochlorperazine 10 MG/2 ML SDV IM ONE (23:56)
== END 2022-11-05 00:45 | disposition home or self-care (01) ==
LOC: LL.ED 23:39
DX: G43.909 Migraine, unspecified, not intractable, without status migrainosus (principal); I10 Essential (primary) hypertension; E78.00 Pure hypercholesterolemia, unspecified; E66.9 Obesity, unspecified; Z91.048 Other nonmedicinal substance allergy status; Z88.5 Allergy status to narcotic agent; Z88.8 Allergy status to other drugs, medicaments and biological substances; Z79.899 Other long term (current) drug therapy; Z87.891 Personal history of nicotine dependence
CPT/HCPCS: 96372; 99283; J0780; J1200; J1885